=== PATIENT | male | born 1985 | race Caucasian/White ===

== ENCOUNTER 2020-01-13 11:52 | Inpatient (IN) | payer MEDICAID, OTHER ==
[~2020-01-13] VITALS: Ht 175.3 cm; Wt 102.7 kg
[2020-01-13] MEDS ORDERED: DiphenhydrAMINE HCL 50 MG/ML VIAL IM ONE (16:15)
[2020-01-13] MEDS ORDERED: LORazepam 2 MG/ML VIAL IM ONE (16:15)
[2020-01-13] MEDS ORDERED: HALOPERIDOL LACTATE 5 MG/ML VIAL IM ONE (16:15)
[2020-01-13 18:00] LABS: COVID AG,FIA SOURCE NASOPHARYNGEAL
[2020-01-13] MEDS ORDERED: ZOLPIDEM TARTRATE 10 MG TABLET PO PRN (18:00)
[2020-01-13] MEDS ORDERED: HALOPERIDOL 5 MG TABLET PO PRN (18:00)
[2020-01-13] MEDS ORDERED: LORazepam 2 MG TABLET PO PRN (18:00)
[2020-01-13 18:11] LABS: BASOPHILS % (AUTO) 0.5 % (0.0-2.0); EOSINOPHILS % (AUTO) 2.3 % (1.0-6.0); HEMATOCRIT 35.9 % (41-53); HEMOGLOBIN 11.7 g/dL (13.5-17.5); LYMPHOCYTES # (AUTO) 2.1 K/uL (1.0-4.8); LYMPHOCYTES % (AUTO) 33.2 % (22.0-44.0); MEAN CORPUSCULAR HEMOGLOBIN 25.1 pg (26.0-34.0); MEAN CORPUSCULAR HGB CONC 32.5 G/dL (31.0-37.0); MEAN CORPUSCULAR VOLUME 77 fL (80-100); MONOCYTES # (AUTO) 0.9 K/uL (0.1-1.0); MONOCYTES % (AUTO) 14.4 % (2.0-9.0); NEUTROPHILS # (AUTO) 3.1 K/uL (1.8-7.7); NEUTROPHILS % (AUTO) 49.6 % (40.0-70.0); PLATELET COUNT (AUTO) 346 K/uL (150-450); RED BLOOD CELL COUNT(AUTO) 4.65 MIL/uL (4.50-5.90); RED CELL DISTRIBUTION WIDTH 20.1 % (11.5-14.5)
[2020-01-13 18:20] LABS: ANION GAP 8 mmol/L (8-16); CALCIUM, TOTAL 9.6 mg/dL (8.8-10.5); CARBON DIOXIDE 29 mmol/L (22-29); CHLORIDE 103 mmol/L (98-107); CREATININE 1.14 mg/dL (0.60-1.30); GLOMERULAR FILTR. RATE CALC > 60 mL/min (>60); GLUCOSE,RANDOM 91 mg/dL (70-110); POTASSIUM 4.2 mmol/L (3.5-5.1); SODIUM SERUM 140 mmol/L (136-145); UREA NITROGEN, BLOOD 10 mg/dL (7-18)
[2020-01-13 18:34] LABS: ALANINE AMINOTRANSFERASE 30 U/L (12-78); ALBUMIN 3.1 g/dL (3.4-5.0); ALKALINE PHOSPHATASE 75 U/L (46-116); ASPARTATE AMINOTRANSFERASE 30 U/L (15-37); BILIRUBIN,TOTAL 0.5 mg/dL (0.1-1.0); TOTAL PROTEIN, SERUM 7.1 g/dL (6.4-8.2)
[2020-01-13] MEDS ORDERED: INFLUENZA VIRUS VACCINE QVS 2020-21 (6MO+)/PF 60 MCG/0.5 ML SYRINGE IM ONE (20:30)
[2020-01-14] MEDS ORDERED: NICOTINE 14 MG/24 HOUR PATCH TD PRN (08:00)
[2020-01-14] MEDS ORDERED: CloNIDine HCL 0.1 MG TABLET PO PRN (08:00)
[2020-01-14] MEDS ORDERED: GuaiFENesin/D-METHORPHAN [SUGAR-FREE] 200-20MG/10 ML SYRUP UDCUP PO PRN (08:00)
[2020-01-14] MEDS ORDERED: ALBUTEROL SULFATE HFA 90 MCG/PUFF 8 GM INHALER IH PRN (08:00)
[2020-01-14] MEDS ORDERED: LOPERAMIDE HCL 2 MG CAPSULE PO PRN (08:00)
[2020-01-14] MEDS ORDERED: MAGNESIUM HYDROXIDE SUSPENSION 30 ML UDCUP PO PRN (08:00)
[2020-01-14] MEDS ORDERED: DOCUSATE SODIUM 100 MG CAPSULE PO PRN (08:00)
[2020-01-14] MEDS ORDERED: PETROLATUM,WHITE 28 GM JELLY TP PRN (08:00)
[2020-01-14] MEDS ORDERED: MAG HYDROX/AL HYDROX/SIMETH ES 30 ML SUSPENSION UDCUP PO PRN (08:00)
[2020-01-14] MEDS ORDERED: ONDANSETRON HCL 4 MG TABLET PO PRN (08:00)
[2020-01-14] MEDS: OLANZapine 5 MG TABLET PO SCH ×2 (10:52→20:46)
[2020-01-14 16:24] VITALS: BP 110/60
[2020-01-15 08:00] VITALS: BP 92/55
[2020-01-15] MEDS: OLANZapine 5 MG TABLET PO SCH ×2 (09:00→20:41)
[2020-01-15 16:00] VITALS: BP 108/63
[2020-01-16] MEDS: OLANZapine 5 MG TABLET PO SCH ×2 (09:12→20:43)
[2020-01-16 17:00] VITALS: BP 101/62
[2020-01-17] MEDS: OLANZapine 5 MG TABLET PO SCH ×2 (09:02→20:24)
[2020-01-17 09:34] VITALS: BP 117/79
[2020-01-17 16:30] VITALS: BP 106/59
[2020-01-18] MEDS: OLANZapine 5 MG TABLET PO SCH ×2 (07:41→20:31)
[2020-01-18 11:13] VITALS: BP 111/67
[2020-01-18 16:14] VITALS: BP 90/51
[2020-01-19 08:00] VITALS: BP 116/70
[2020-01-19] MEDS: OLANZapine 5 MG TABLET PO SCH ×2 (08:27→20:12)
[2020-01-19 16:32] VITALS: BP 98/59
[2020-01-19 17:07] VITALS: BP 108/59
[2020-01-19] MEDS: ACETAMINOPHEN 325 MG TABLET PO PRN (17:14)
[2020-01-20 08:00] VITALS: BP 118/85
[2020-01-20] MEDS: OLANZapine 5 MG TABLET PO SCH ×2 (08:07→20:26)
[2020-01-20] MEDS: ACETAMINOPHEN 325 MG TABLET PO PRN (11:58)
[2020-01-20 12:00] VITALS: BP 127/79
[2020-01-20 16:07] VITALS: BP 107/64
[2020-01-20 18:17] VITALS: BP 125/77
[2020-01-20] MEDS: IBUPROFEN 400 MG TABLET PO PRN (18:17)
[2020-01-20] MEDS: BENZOCAINE/MENTHOL LOZENGE PO PRN (20:26)
[2020-01-21] MEDS: BENZOCAINE/MENTHOL LOZENGE PO PRN ×2 (07:36→19:40)
[2020-01-21 08:00] VITALS: BP 129/76
[2020-01-21] MEDS: OLANZapine 5 MG TABLET PO SCH ×2 (08:18→20:12)
[2020-01-21] MEDS: IBUPROFEN 400 MG TABLET PO PRN ×2 (11:24→20:12)
[2020-01-21 16:20] VITALS: BP 114/60
[2020-01-21 18:07] VITALS: BP 111/69
[2020-01-21] MEDS: ACETAMINOPHEN 325 MG TABLET PO PRN (18:07)
[2020-01-22 08:16] VITALS: BP 119/77
[2020-01-22] MEDS: OLANZapine 5 MG TABLET PO SCH ×2 (08:16→20:22)
[2020-01-22] MEDS: IBUPROFEN 400 MG TABLET PO PRN ×2 (08:16→20:58)
[2020-01-22 11:31] VITALS: BP 129/78
[2020-01-22] MEDS: TraMADol HCL 50 MG TABLET PO PRN ×3 (11:31→17:48)
[2020-01-22] MEDS: AMOX TR/POT CLAV 875 MG/125 MG TABLET PO SCH ×2 (12:25→16:13)
[2020-01-22 16:10] VITALS: BP 99/60
[2020-01-22 16:45] VITALS: BP 116/77
[2020-01-22 17:45] VITALS: BP 116/77
[2020-01-22 21:00] VITALS: BP 137/82
[2020-01-23 06:55] LABS: ANION GAP 7 mmol/L (8-16); CALCIUM, TOTAL 8.7 mg/dL (8.8-10.5); CARBON DIOXIDE 30 mmol/L (22-29); CHLORIDE 103 mmol/L (98-107); CREATININE 1.01 mg/dL (0.60-1.30); GLOMERULAR FILTR. RATE CALC > 60 mL/min (>60); GLUCOSE,RANDOM 93 mg/dL (70-110); POTASSIUM 4.6 mmol/L (3.5-5.1); SODIUM SERUM 140 mmol/L (136-145); UREA NITROGEN, BLOOD 12 mg/dL (7-18)
[2020-01-23 08:00] VITALS: BP 111/62
[2020-01-23] MEDS: OLANZapine 5 MG TABLET PO SCH ×2 (08:35→20:01)
[2020-01-23] MEDS: AMOX TR/POT CLAV 875 MG/125 MG TABLET PO SCH ×3 (08:36→16:09)
[2020-01-23] MEDS: TraMADol HCL 50 MG TABLET PO PRN ×2 (09:12→17:58)
[2020-01-23] MEDS: IBUPROFEN 400 MG TABLET PO PRN (10:59)
[2020-01-23 16:01] VITALS: BP 108/76
[2020-01-23] MEDS ORDERED: LIDOCAINE 2% VISCOUS 15 ML SOLUTION UDCUP MM PRN (21:45)
[2020-01-23] MEDS: IBUPROFEN 600 MG TABLET PO SCH (23:53)
[2020-01-24 08:00] VITALS: BP 111/75
[2020-01-24] MEDS: IBUPROFEN 600 MG TABLET PO SCH ×3 (08:00→23:32)
[2020-01-24] MEDS: AMOX TR/POT CLAV 875 MG/125 MG TABLET PO SCH ×3 (08:09→16:08)
[2020-01-24] MEDS: OLANZapine 5 MG TABLET PO SCH ×2 (08:09→20:02)
[2020-01-24 16:00] VITALS: BP 115/71
[2020-01-25 08:00] VITALS: BP 145/93
[2020-01-25] MEDS: OLANZapine 5 MG TABLET PO SCH ×2 (08:08→20:24)
[2020-01-25] MEDS: IBUPROFEN 600 MG TABLET PO SCH ×2 (08:08→16:08)
[2020-01-25] MEDS: AMOX TR/POT CLAV 875 MG/125 MG TABLET PO SCH ×3 (08:08→16:08)
[2020-01-25 16:34] VITALS: BP 118/89
[2020-01-25] MEDS: BENZOCAINE/MENTHOL LOZENGE PO PRN (22:13)
[2020-01-26 00:07] VITALS: BP 124/75
[2020-01-26] MEDS: IBUPROFEN 600 MG TABLET PO SCH ×4 (00:09→23:46)
[2020-01-26] MEDS: AMOX TR/POT CLAV 875 MG/125 MG TABLET PO SCH ×3 (08:02→16:14)
[2020-01-26] MEDS: OLANZapine 5 MG TABLET PO SCH ×2 (08:02→20:34)
[2020-01-26 10:16] VITALS: BP 114/69
[2020-01-26 16:12] VITALS: BP 123/81
[2020-01-27 08:00] VITALS: BP 109/68
[2020-01-27] MEDS: OLANZapine 5 MG TABLET PO SCH ×2 (08:47→20:11)
[2020-01-27] MEDS: AMOX TR/POT CLAV 875 MG/125 MG TABLET PO SCH ×3 (08:47→16:34)
[2020-01-27] MEDS: IBUPROFEN 600 MG TABLET PO SCH (08:47)
[2020-01-27 16:10] VITALS: BP 117/97
[2020-01-28] MEDS: OLANZapine 5 MG TABLET PO SCH (09:30)
[2020-01-28] MEDS: AMOX TR/POT CLAV 875 MG/125 MG TABLET PO SCH ×3 (09:30→16:24)
[2020-01-28 09:54] VITALS: BP 107/56
[2020-01-28 16:05] VITALS: BP 107/53
[2020-01-28 16:23] LABS: COVID AG,FIA SOURCE NASOPHARYNGEAL
[2020-01-28] MEDS: OLANZapine 7.5 MG TABLET PO SCH (20:06)
[2020-01-28] MEDS: IBUPROFEN 600 MG TABLET PO PRN (20:07)
[2020-01-29 08:00] VITALS: BP 100/74
[2020-01-29] MEDS: OLANZapine 7.5 MG TABLET PO SCH ×2 (08:14→20:06)
[2020-01-29] MEDS: AMOX TR/POT CLAV 875 MG/125 MG TABLET PO SCH ×3 (08:14→16:33)
[2020-01-29] MEDS: LORazepam 1 MG TABLET PO PRN ×2 (12:04→20:07)
[2020-01-29 16:48] VITALS: BP 105/64
[2020-01-30 08:00] VITALS: BP 101/53
[2020-01-30] MEDS: AMOX TR/POT CLAV 875 MG/125 MG TABLET PO SCH ×3 (08:47→16:09)
[2020-01-30] MEDS: OLANZapine 7.5 MG TABLET PO SCH ×2 (08:47→20:23)
[2020-01-30] MEDS: LORazepam 1 MG TABLET PO PRN ×2 (16:09→20:23)
[2020-01-30 16:43] VITALS: BP 109/57
[2020-01-31 08:00] VITALS: BP 125/65
[2020-01-31] MEDS: OLANZapine 7.5 MG TABLET PO SCH ×2 (09:41→20:16)
[2020-01-31] MEDS: AMOX TR/POT CLAV 875 MG/125 MG TABLET PO SCH ×3 (09:41→16:33)
[2020-01-31] MEDS: LORazepam 1 MG TABLET PO PRN (12:06)
[2020-01-31 16:00] VITALS: BP 107/67
[2020-02-01 08:00] VITALS: BP 108/73
[2020-02-01] MEDS: AMOX TR/POT CLAV 875 MG/125 MG TABLET PO SCH (09:49)
[2020-02-01] MEDS: OLANZapine 7.5 MG TABLET PO SCH ×2 (09:49→20:05)
[2020-02-01] MEDS: LORazepam 1 MG TABLET PO PRN ×2 (11:32→20:19)
[2020-02-01 17:01] VITALS: BP 110/62
[2020-02-02] MEDS: OLANZapine 7.5 MG TABLET PO SCH ×2 (09:02→20:09)
[2020-02-02 09:03] VITALS: BP 99/67
[2020-02-02] MEDS: LORazepam 1 MG TABLET PO PRN ×3 (12:03→22:14)
[2020-02-02 17:26] VITALS: BP 94/56
[2020-02-02 18:01] VITALS: BP 120/73
[2020-02-03] MEDS: OLANZapine 7.5 MG TABLET PO SCH ×2 (08:01→20:38)
[2020-02-03] MEDS: LORazepam 1 MG TABLET PO PRN ×3 (08:01→17:58)
[2020-02-03 09:57] VITALS: BP 93/50
[2020-02-03 17:56] VITALS: BP 128/80
[2020-02-04 08:49] VITALS: BP 132/73
[2020-02-04] MEDS: OLANZapine 7.5 MG TABLET PO SCH ×2 (09:02→20:39)
[2020-02-04] MEDS: LORazepam 1 MG TABLET PO PRN ×3 (09:04→20:59)
[2020-02-04 15:57] LABS: COVID AG,FIA SOURCE NASOPHARYNGEAL
[2020-02-04 16:19] VITALS: BP 126/76
[2020-02-05] MEDS: OLANZapine 7.5 MG TABLET PO SCH ×2 (08:59→20:08)
[2020-02-05 10:08] VITALS: BP 110/57
[2020-02-05] MEDS: LORazepam 1 MG TABLET PO PRN ×3 (12:29→22:03)
[2020-02-05 12:35] VITALS: BP 115/65
[2020-02-05 16:18] VITALS: BP 92/60
[2020-02-06 08:20] VITALS: BP 114/66
[2020-02-06] MEDS: OLANZapine 7.5 MG TABLET PO SCH ×2 (08:56→20:15)
[2020-02-06] MEDS ORDERED: TUBERCULIN, PURIFIED PROTEIN DERIVATIVE 5 TU/0.1 ML SYRINGE ID ONE (13:45)
[2020-02-06] MEDS: LORazepam 1 MG TABLET PO PRN ×2 (14:18→20:15)
[2020-02-06 17:03] VITALS: BP 117/79
[2020-02-07 08:00] VITALS: BP 123/87
[2020-02-07] MEDS: OLANZapine 7.5 MG TABLET PO SCH ×2 (08:13→20:07)
[2020-02-07] MEDS: LORazepam 1 MG TABLET PO PRN ×3 (12:00→21:51)
[2020-02-07 16:58] VITALS: BP 127/82
[2020-02-08 08:00] VITALS: BP 123/65
[2020-02-08] MEDS: OLANZapine 7.5 MG TABLET PO SCH ×2 (08:50→20:13)
[2020-02-08] MEDS: LORazepam 1 MG TABLET PO PRN ×3 (12:36→22:33)
[2020-02-08 16:01] VITALS: BP 113/68
[2020-02-09 08:52] VITALS: BP 110/79
[2020-02-09] MEDS: OLANZapine 7.5 MG TABLET PO SCH ×2 (09:09→20:21)
[2020-02-09] MEDS: LORazepam 1 MG TABLET PO PRN ×3 (12:12→20:21)
[2020-02-09 16:30] VITALS: BP 117/81
[2020-02-10 08:00] VITALS: BP 110/75
[2020-02-10] MEDS: OLANZapine 7.5 MG TABLET PO SCH ×2 (08:37→20:07)
[2020-02-10] MEDS: LORazepam 1 MG TABLET PO PRN ×2 (08:37→19:40)
[2020-02-10 16:33] VITALS: BP 105/75
[2020-02-11 09:32] VITALS: BP 113/61
[2020-02-11] MEDS: OLANZapine 7.5 MG TABLET PO SCH ×2 (11:11→20:49)
[2020-02-11] MEDS: LORazepam 1 MG TABLET PO PRN ×3 (12:23→23:06)
[2020-02-11 17:04] VITALS: BP 120/72
[2020-02-11 19:12] LABS: COVID AG,FIA SOURCE NASOPHARYNGEAL
[2020-02-12] MEDS: OLANZapine 7.5 MG TABLET PO SCH ×2 (09:08→20:29)
[2020-02-12] MEDS: LORazepam 1 MG TABLET PO PRN ×3 (12:58→21:53)
[2020-02-12 16:00] VITALS: BP 126/75
[2020-02-13] MEDS: OLANZapine 7.5 MG TABLET PO SCH ×2 (08:46→20:11)
[2020-02-13 09:31] VITALS: BP 128/61
[2020-02-13] MEDS: LORazepam 1 MG TABLET PO PRN ×3 (12:00→22:38)
[2020-02-13 16:00] VITALS: BP 95/65
[2020-02-14 09:02] VITALS: BP 121/73
[2020-02-14] MEDS: LORazepam 1 MG TABLET PO PRN ×3 (11:16→20:05)
[2020-02-14] MEDS: OLANZapine 7.5 MG TABLET PO SCH ×2 (11:16→20:05)
[2020-02-14 16:00] VITALS: BP 116/65
[2020-02-15 00:54] VITALS: BP 120/78
[2020-02-15] MEDS: LORazepam 1 MG TABLET PO PRN ×3 (00:54→22:09)
[2020-02-15 08:19] VITALS: BP 113/71
[2020-02-15] MEDS: OLANZapine 7.5 MG TABLET PO SCH ×2 (08:21→20:30)
[2020-02-15 16:08] VITALS: BP 112/56
[2020-02-15 16:09] VITALS: BP 112/56
[2020-02-15 16:58] LABS: COVID AG,FIA SOURCE NASOPHARYNGEAL
[2020-02-16] MEDS: OLANZapine 7.5 MG TABLET PO SCH ×2 (08:27→20:18)
[2020-02-16 09:49] VITALS: BP 130/77
[2020-02-16 16:04] VITALS: BP 122/71
[2020-02-16] MEDS: LORazepam 1 MG TABLET PO PRN ×2 (17:56→23:35)
[2020-02-16 23:30] VITALS: BP 118/72
[2020-02-17] MEDS: OLANZapine 7.5 MG TABLET PO SCH ×2 (08:20→20:04)
[2020-02-17] MEDS: LORazepam 1 MG TABLET PO PRN ×3 (08:20→20:26)
[2020-02-17 08:43] VITALS: BP 105/65
[2020-02-17 08:50] VITALS: BP 105/65
[2020-02-17 16:03] VITALS: BP 120/92
[2020-02-18 08:50] VITALS: BP 116/58
[2020-02-18] MEDS: OLANZapine 7.5 MG TABLET PO SCH ×2 (08:57→20:05)
[2020-02-18] MEDS: LORazepam 1 MG TABLET PO PRN ×3 (08:57→20:04)
[2020-02-18 09:13] VITALS: BP 116/58
[2020-02-18 16:10] VITALS: BP 120/69
[2020-02-19] MEDS: LORazepam 1 MG TABLET PO PRN ×5 (00:41→20:16)
[2020-02-19 08:00] VITALS: BP 109/64
[2020-02-19] MEDS: OLANZapine 7.5 MG TABLET PO SCH ×2 (08:16→20:18)
[2020-02-19 17:40] VITALS: BP 124/17
[2020-02-20 00:13] VITALS: BP 117/74
[2020-02-20] MEDS: LORazepam 1 MG TABLET PO PRN ×3 (00:21→23:07)
[2020-02-20 08:10] VITALS: BP 101/75
[2020-02-20] MEDS: OLANZapine 7.5 MG TABLET PO SCH ×2 (08:37→20:03)
[2020-02-20 16:26] VITALS: BP 100/70
[2020-02-20 20:58] LABS: COVID AG,FIA SOURCE NASAL SWAB
[2020-02-21 08:00] VITALS: BP 113/59
[2020-02-21] MEDS: OLANZapine 7.5 MG TABLET PO SCH ×2 (08:01→20:38)
[2020-02-21 16:35] VITALS: BP 100/65
[2020-02-21] MEDS: LORazepam 1 MG TABLET PO PRN ×2 (18:49→23:11)
[2020-02-21 18:52] VITALS: BP 149/77
[2020-02-22] MEDS: OLANZapine 7.5 MG TABLET PO SCH ×2 (08:19→20:22)
[2020-02-22 08:32] VITALS: BP 113/73
[2020-02-22] MEDS: LORazepam 1 MG TABLET PO PRN ×3 (09:38→23:59)
[2020-02-22 16:00] VITALS: BP 110/78
[2020-02-22] MEDS: IBUPROFEN 600 MG TABLET PO PRN (23:59)
[2020-02-23 00:05] VITALS: BP 102/84
[2020-02-23 08:10] VITALS: BP 111/75
[2020-02-23] MEDS: LORazepam 1 MG TABLET PO PRN ×3 (08:40→22:16)
[2020-02-23] MEDS: OLANZapine 7.5 MG TABLET PO SCH ×2 (08:40→20:10)
[2020-02-23 17:47] VITALS: BP 149/91
[2020-02-24 01:28] VITALS: BP 125/71
[2020-02-24 08:00] VITALS: BP 122/62
[2020-02-24] MEDS: OLANZapine 7.5 MG TABLET PO SCH ×2 (09:21→20:18)
[2020-02-24] MEDS: LORazepam 1 MG TABLET PO PRN ×2 (16:08→20:18)
[2020-02-24 16:22] VITALS: BP 114/75
[2020-02-25 08:35] VITALS: BP 101/50
[2020-02-25] MEDS: OLANZapine 7.5 MG TABLET PO SCH ×2 (09:18→21:02)
[2020-02-25 16:00] VITALS: BP 99/57
[2020-02-25] MEDS: LORazepam 1 MG TABLET PO PRN (21:07)
[2020-02-26 08:10] VITALS: BP 99/54
[2020-02-26] MEDS: OLANZapine 7.5 MG TABLET PO SCH ×2 (09:29→20:15)
[2020-02-26 16:07] VITALS: BP 118/65
[2020-02-26] MEDS: LORazepam 1 MG TABLET PO PRN (20:15)
[2020-02-27 08:05] VITALS: BP 113/66
[2020-02-27] MEDS: OLANZapine 7.5 MG TABLET PO SCH ×2 (09:17→20:14)
[2020-02-27 16:21] VITALS: BP 116/62
[2020-02-27 17:24] LABS: COVID AG,FIA SOURCE NASOPHARYNGEAL
[2020-02-27] MEDS: LORazepam 1 MG TABLET PO PRN ×2 (18:17→22:40)
[2020-02-28 08:39] VITALS: BP 108/80
[2020-02-28] MEDS: OLANZapine 7.5 MG TABLET PO SCH ×2 (08:59→20:32)
[2020-02-28] MEDS: LORazepam 1 MG TABLET PO PRN (16:23)
[2020-02-28 16:29] VITALS: BP 115/75
[2020-02-29 01:00] VITALS: BP 115/67
[2020-02-29] MEDS: LORazepam 1 MG TABLET PO PRN ×3 (01:02→20:26)
[2020-02-29 09:09] VITALS: BP 115/67
[2020-02-29] MEDS: OLANZapine 7.5 MG TABLET PO SCH ×2 (10:00→20:03)
[2020-02-29 16:22] VITALS: BP 128/78
[2020-03-01] MEDS: OLANZapine 7.5 MG TABLET PO SCH ×2 (08:02→20:08)
[2020-03-01] MEDS: LORazepam 1 MG TABLET PO PRN ×2 (08:07→20:08)
[2020-03-01 08:56] VITALS: BP 114/69
[2020-03-01 16:00] VITALS: BP 134/73
[2020-03-02] VITALS: BP 112/66
[2020-03-02 08:00] VITALS: BP 106/72
[2020-03-02 08:44] VITALS: BP 106/72
[2020-03-02] MEDS: OLANZapine 7.5 MG TABLET PO SCH ×2 (09:12→20:39)
[2020-03-02 17:42] VITALS: BP 123/68
[2020-03-02] MEDS: LORazepam 1 MG TABLET PO PRN (20:23)
[2020-03-03 02:50] VITALS: BP 114/68
[2020-03-03 08:48] VITALS: BP 115/53
[2020-03-03] MEDS: OLANZapine 7.5 MG TABLET PO SCH ×2 (09:00→20:13)
[2020-03-03 16:51] VITALS: BP 127/74
[2020-03-03] MEDS: LORazepam 1 MG TABLET PO PRN (20:06)
[2020-03-04] MEDS: OLANZapine 7.5 MG TABLET PO SCH ×2 (08:08→20:16)
[2020-03-04 09:31] VITALS: BP 138/93
[2020-03-04 16:00] VITALS: BP 139/69
[2020-03-04] MEDS: LORazepam 1 MG TABLET PO PRN (20:17)
[2020-03-05 01:11] VITALS: BP 96/60
[2020-03-05 09:00] VITALS: BP 9/59
[2020-03-05] MEDS: OLANZapine 7.5 MG TABLET PO SCH ×2 (09:08→20:18)
[2020-03-05 14:33] LABS: COVID AG,FIA SOURCE NASOPHARYNGEAL
[2020-03-05 16:01] VITALS: BP 97/61
[2020-03-05] MEDS: LORazepam 1 MG TABLET PO PRN (20:18)
[2020-03-06] MEDS: OLANZapine 7.5 MG TABLET PO SCH ×2 (08:44→20:17)
[2020-03-06 08:45] VITALS: BP 110/38
[2020-03-06 16:11] VITALS: BP 122/72
[2020-03-06] MEDS: LORazepam 1 MG TABLET PO PRN (21:09)
[2020-03-07 08:18] VITALS: BP 119/75
[2020-03-07] MEDS: OLANZapine 7.5 MG TABLET PO SCH ×2 (08:36→20:06)
[2020-03-07 16:09] VITALS: BP 104/74
[2020-03-07] MEDS: LORazepam 1 MG TABLET PO PRN (20:10)
[2020-03-08 08:20] VITALS: BP 107/69
[2020-03-08 08:30] VITALS: BP 107/69
[2020-03-08] MEDS: OLANZapine 7.5 MG TABLET PO SCH ×2 (08:34→20:41)
[2020-03-08 16:00] VITALS: BP 107/64
[2020-03-08] MEDS: LORazepam 1 MG TABLET PO PRN (20:44)
[2020-03-09 08:15] VITALS: BP 117/54
[2020-03-09] MEDS: OLANZapine 7.5 MG TABLET PO SCH ×2 (09:22→20:05)
[2020-03-09 16:00] VITALS: BP 101/69
[2020-03-09] MEDS: LORazepam 1 MG TABLET PO PRN (20:05)
[2020-03-10 00:33] VITALS: BP 126/81
[2020-03-10 09:02] VITALS: BP 114/49
[2020-03-10] MEDS: OLANZapine 7.5 MG TABLET PO SCH ×2 (09:56→20:04)
[2020-03-10 16:00] VITALS: BP 97/66
[2020-03-10] MEDS: LORazepam 1 MG TABLET PO PRN (20:02)
[2020-03-11 08:00] VITALS: BP 106/64
[2020-03-11] MEDS: OLANZapine 7.5 MG TABLET PO SCH ×2 (08:21→20:14)
[2020-03-11 16:00] VITALS: BP 94/53
[2020-03-11] MEDS: LORazepam 1 MG TABLET PO PRN (20:14)
[2020-03-12] MEDS: OLANZapine 7.5 MG TABLET PO SCH ×2 (08:25→20:32)
[2020-03-12 10:13] VITALS: BP 135/84
[2020-03-12 13:40] LABS: COVID AG,FIA SOURCE NASOPHARYNGEAL
[2020-03-12 16:00] VITALS: BP 109/61
[2020-03-12] MEDS: LORazepam 1 MG TABLET PO PRN (20:32)
[2020-03-13 08:25] VITALS: BP 111/63
[2020-03-13] MEDS: OLANZapine 7.5 MG TABLET PO SCH ×2 (08:36→20:00)
[2020-03-13] MEDS: LORazepam 1 MG TABLET PO PRN (20:00)
[2020-03-14 01:57] VITALS: BP 122/87
[2020-03-14 08:24] VITALS: BP 101/62
[2020-03-14] MEDS: OLANZapine 7.5 MG TABLET PO SCH ×2 (10:19→20:05)
[2020-03-14 16:00] VITALS: BP 115/58
[2020-03-14 16:40] VITALS: BP 115/58
[2020-03-14] MEDS: LORazepam 1 MG TABLET PO PRN (20:05)
[2020-03-15] MEDS: OLANZapine 7.5 MG TABLET PO SCH ×2 (08:14→20:23)
[2020-03-15 08:16] VITALS: BP 104/67
[2020-03-15 16:14] VITALS: BP 92/60
[2020-03-15] MEDS: LORazepam 1 MG TABLET PO PRN (20:23)
[2020-03-16 01:00] VITALS: BP 102/76
[2020-03-16 08:00] VITALS: BP 109/66
[2020-03-16] MEDS: OLANZapine 7.5 MG TABLET PO SCH ×2 (08:32→20:01)
[2020-03-16 16:18] VITALS: BP 112/69
[2020-03-16] MEDS: LORazepam 1 MG TABLET PO PRN (20:02)
[2020-03-17] VITALS: BP 111/60
[2020-03-17 08:06] VITALS: BP 138/56
[2020-03-17] MEDS: OLANZapine 7.5 MG TABLET PO SCH ×2 (09:15→20:21)
[2020-03-17 16:59] VITALS: BP 97/60
[2020-03-17] MEDS: LORazepam 1 MG TABLET PO PRN (20:20)
[2020-03-18 08:00] VITALS: BP 105/57
[2020-03-18] MEDS: OLANZapine 7.5 MG TABLET PO SCH ×2 (08:59→20:11)
[2020-03-18 16:00] VITALS: BP 105/61
[2020-03-18] MEDS: LORazepam 1 MG TABLET PO PRN (21:03)
[2020-03-19 01:36] VITALS: BP 111/63
[2020-03-19 08:00] VITALS: BP 101/65
[2020-03-19] MEDS: OLANZapine 7.5 MG TABLET PO SCH ×2 (08:29→20:49)
[2020-03-19 16:00] VITALS: BP 121/70
[2020-03-19] MEDS: LORazepam 1 MG TABLET PO PRN (21:40)
[2020-03-19 22:40] LABS: COVID AG,FIA SOURCE NASOPHARYNGEAL
[2020-03-20] MEDS: OLANZapine 7.5 MG TABLET PO SCH ×2 (08:59→20:01)
[2020-03-20 09:53] VITALS: BP 125/60
[2020-03-20 16:00] VITALS: BP 119/66
[2020-03-20] MEDS: LORazepam 1 MG TABLET PO PRN (20:01)
[2020-03-21] MEDS: OLANZapine 7.5 MG TABLET PO SCH ×2 (08:22→20:17)
[2020-03-21 10:19] VITALS: BP 98/62
[2020-03-21 16:00] VITALS: BP 121/57
[2020-03-21] MEDS: LORazepam 1 MG TABLET PO PRN (21:32)
[2020-03-22 05:10] VITALS: BP 112/62
[2020-03-22] MEDS: OLANZapine 7.5 MG TABLET PO SCH ×2 (08:44→20:46)
[2020-03-22] MEDS: LORazepam 1 MG TABLET PO PRN ×2 (08:44→22:51)
[2020-03-22 10:13] VITALS: BP 137/73
[2020-03-22 16:00] VITALS: BP 96/63
[2020-03-23 08:00] VITALS: BP 93/67
[2020-03-23] MEDS: OLANZapine 7.5 MG TABLET PO SCH ×2 (10:29→21:19)
[2020-03-23] MEDS: LORazepam 1 MG TABLET PO PRN ×2 (11:02→22:47)
[2020-03-23 17:38] VITALS: BP 105/59
[2020-03-24 01:20] VITALS: BP 128/73
[2020-03-24 08:30] VITALS: BP 114/81
[2020-03-24] MEDS: OLANZapine 7.5 MG TABLET PO SCH ×2 (08:51→21:10)
[2020-03-24 18:00] VITALS: BP 94/57
[2020-03-25] MEDS: OLANZapine 7.5 MG TABLET PO SCH ×2 (08:35→21:10)
[2020-03-25 09:47] VITALS: BP 108/56
[2020-03-25 17:41] VITALS: BP 115/69
[2020-03-26 04:05] VITALS: BP 110/67
[2020-03-26 08:00] VITALS: BP 142/88
[2020-03-26] MEDS: OLANZapine 7.5 MG TABLET PO SCH ×2 (09:05→20:07)
[2020-03-26 15:05] LABS: COVID AG,FIA SOURCE NASOPHARYNGEAL
[2020-03-26 16:00] VITALS: BP 103/65
[2020-03-27 05:00] VITALS: BP 118/79
[2020-03-27 08:00] VITALS: BP 126/80
[2020-03-27] MEDS: OLANZapine 7.5 MG TABLET PO SCH ×2 (08:26→20:31)
[2020-03-27 16:00] VITALS: BP 98/60
[2020-03-28 06:59] VITALS: BP 118/97
[2020-03-28 08:17] VITALS: BP 100/60
[2020-03-28] MEDS: OLANZapine 7.5 MG TABLET PO SCH ×2 (08:33→20:15)
[2020-03-28 16:00] VITALS: BP 110/69
[2020-03-28] MEDS: LORazepam 1 MG TABLET PO PRN (20:16)
[2020-03-29] MEDS: OLANZapine 7.5 MG TABLET PO SCH ×2 (08:04→21:09)
[2020-03-29 08:05] VITALS: BP 137/78
[2020-03-29 18:40] VITALS: BP 112/65
[2020-03-30 08:00] VITALS: BP 118/71
[2020-03-30] MEDS: OLANZapine 7.5 MG TABLET PO SCH ×2 (08:54→20:35)
[2020-03-30 16:00] VITALS: BP 129/80
[2020-03-31] MEDS: OLANZapine 7.5 MG TABLET PO SCH ×2 (08:17→20:03)
[2020-03-31 08:30] VITALS: BP 123/77
[2020-03-31 16:00] VITALS: BP 108/66
[2020-03-31] MEDS: LORazepam 1 MG TABLET PO PRN (20:03)
[2020-04-01 08:30] VITALS: BP 137/86
[2020-04-01] MEDS: OLANZapine 7.5 MG TABLET PO SCH ×2 (09:27→21:13)
[2020-04-01 16:00] VITALS: BP 112/60
[2020-04-01] MEDS: LORazepam 1 MG TABLET PO PRN (21:14)
[2020-04-02] MEDS: OLANZapine 7.5 MG TABLET PO SCH ×2 (09:51→20:15)
[2020-04-02 16:25] VITALS: BP 120/69
[2020-04-02] MEDS: LORazepam 1 MG TABLET PO PRN (20:15)
[2020-04-02 22:20] LABS: COVID AG,FIA SOURCE NASOPHARYNGEAL
[2020-04-03 08:30] VITALS: BP 104/58
[2020-04-03] MEDS: OLANZapine 7.5 MG TABLET PO SCH ×2 (08:43→20:02)
[2020-04-03 16:00] VITALS: BP 108/73
[2020-04-03] MEDS: LORazepam 1 MG TABLET PO PRN (20:02)
[2020-04-04] MEDS: OLANZapine 7.5 MG TABLET PO SCH ×2 (08:33→20:06)
[2020-04-04 08:51] VITALS: BP 105/67
[2020-04-04 17:00] VITALS: BP 125/75
[2020-04-04] MEDS: LORazepam 1 MG TABLET PO PRN (20:06)
[2020-04-05] MEDS: OLANZapine 7.5 MG TABLET PO SCH ×2 (08:47→20:01)
[2020-04-05 09:00] VITALS: BP 129/84
[2020-04-05 12:02] VITALS: BP 129/84
[2020-04-05 16:00] VITALS: BP 113/69
[2020-04-05] MEDS: LORazepam 1 MG TABLET PO PRN (20:01)
[2020-04-06 08:45] VITALS: BP 101/66
[2020-04-06] MEDS: OLANZapine 7.5 MG TABLET PO SCH ×2 (08:52→20:20)
[2020-04-06 16:18] VITALS: BP 109/68
[2020-04-06] MEDS: LORazepam 1 MG TABLET PO PRN (21:03)
[2020-04-07] MEDS: OLANZapine 7.5 MG TABLET PO SCH ×2 (08:40→20:08)
[2020-04-07 16:09] VITALS: BP 100/78
[2020-04-07] MEDS: LORazepam 1 MG TABLET PO PRN (19:17)
[2020-04-08 08:00] VITALS: BP 132/92
[2020-04-08] MEDS: OLANZapine 7.5 MG TABLET PO SCH ×2 (08:24→20:18)
[2020-04-08 16:00] VITALS: BP 123/91
[2020-04-09] MEDS: OLANZapine 7.5 MG TABLET PO SCH ×2 (09:01→20:10)
[2020-04-09 09:31] VITALS: BP 120/74
[2020-04-09 16:00] VITALS: BP 114/67
[2020-04-09 19:54] LABS: COVID AG,FIA SOURCE NASOPHARYNGEAL
[2020-04-09 20:00] VITALS: BP 129/84
[2020-04-10] MEDS: OLANZapine 7.5 MG TABLET PO SCH ×2 (08:02→20:31)
[2020-04-10 10:21] VITALS: BP 109/67
[2020-04-10 16:33] VITALS: BP 112/74
[2020-04-10] MEDS: LORazepam 1 MG TABLET PO PRN (20:31)
[2020-04-11] MEDS: OLANZapine 7.5 MG TABLET PO SCH ×2 (08:52→20:04)
[2020-04-11 09:00] VITALS: BP 88/48
[2020-04-11 16:15] VITALS: BP 116/75
[2020-04-12 08:30] VITALS: BP 89/56
[2020-04-12] MEDS: OLANZapine 7.5 MG TABLET PO SCH ×2 (08:41→20:36)
[2020-04-12 16:15] VITALS: BP 136/97
[2020-04-13] MEDS: LORazepam 1 MG TABLET PO PRN ×2 (00:16→20:04)
[2020-04-13] MEDS: OLANZapine 7.5 MG TABLET PO SCH ×2 (08:17→20:04)
[2020-04-13 09:52] VITALS: BP 151/100
[2020-04-13 16:00] VITALS: BP 138/84
[2020-04-14 00:09] VITALS: BP 154/60
[2020-04-14] MEDS: OLANZapine 7.5 MG TABLET PO SCH ×2 (08:42→20:27)
[2020-04-14 09:00] VITALS: BP 105/59
[2020-04-14] MEDS: LORazepam 1 MG TABLET PO PRN (20:27)
[2020-04-15 08:00] VITALS: BP 96/57
[2020-04-15] MEDS: OLANZapine 7.5 MG TABLET PO SCH ×2 (09:37→20:11)
[2020-04-15 16:36] VITALS: BP 102/62
[2020-04-15] MEDS: LORazepam 1 MG TABLET PO PRN (20:11)
[2020-04-16 08:00] VITALS: BP 103/61
[2020-04-16] MEDS: OLANZapine 7.5 MG TABLET PO SCH ×2 (09:31→20:30)
[2020-04-16 15:24] LABS: COVID AG,FIA SOURCE NASOPHARYNGEAL
[2020-04-17] MEDS: OLANZapine 7.5 MG TABLET PO SCH ×2 (08:25→20:14)
[2020-04-17 16:30] VITALS: BP 121/68
[2020-04-17] MEDS: LORazepam 1 MG TABLET PO PRN (20:14)
[2020-04-18] MEDS: OLANZapine 7.5 MG TABLET PO SCH ×2 (09:34→20:17)
[2020-04-18 16:40] VITALS: BP 125/64
[2020-04-18] MEDS: LORazepam 1 MG TABLET PO PRN (20:17)
[2020-04-19 05:45] VITALS: BP 124/63
[2020-04-19 08:30] VITALS: BP 127/82
[2020-04-19] MEDS: OLANZapine 7.5 MG TABLET PO SCH ×2 (09:08→20:01)
[2020-04-19] MEDS ORDERED: TUBERCULIN, PURIFIED PROTEIN DERIVATIVE 5 TU/0.1 ML SYRINGE ID ONE (17:00)
[2020-04-19] MEDS: LORazepam 1 MG TABLET PO PRN (20:01)
[2020-04-20] MEDS: OLANZapine 7.5 MG TABLET PO SCH ×2 (08:42→20:29)
[2020-04-20 08:45] VITALS: BP 102/54
[2020-04-20] MEDS: LORazepam 1 MG TABLET PO PRN (20:30)
[2020-04-21 01:01] VITALS: BP 128/82
[2020-04-21 08:30] VITALS: BP 97/57
[2020-04-21] MEDS: OLANZapine 7.5 MG TABLET PO SCH ×2 (10:10→20:06)
[2020-04-21 19:07] VITALS: BP 102/68
[2020-04-21] MEDS: LORazepam 1 MG TABLET PO PRN (20:06)
[2020-04-22 00:16] VITALS: BP 118/78
[2020-04-22] MEDS: OLANZapine 7.5 MG TABLET PO SCH (08:54)
[2020-04-22 09:01] VITALS: BP 100/60
[2020-04-22] MEDS ORDERED: OLAN7.5T2 PO (09:55)
== END 2020-04-22 12:55 | disposition designated cancer center or children's hospital (05) | DRG 750 ==
LOC: EMS 11:57 → 3EC 17:47 → 3EI 01-27 14:23 → 3EX 02-15 21:35 → 3EI 02-19 15:48 → 3EX 02-24 22:21 → 3EI 03-01 12:06
DX: F20.0 Paranoid schizophrenia (principal); D64.9 Anemia, unspecified; F60.0 Paranoid personality disorder; F91.3 Oppositional defiant disorder; J36 Peritonsillar abscess; Z59.0 Homelessness; Z20.822 Contact with and (suspected) exposure to COVID-19; Z28.21 Immunization not carried out because of patient refusal
CPT/HCPCS: 70490; 87426; 87430; 99291; G0378; G0480; J1200; J1630; J2060; 36415-L1; 36415-TC; 71045-TC